=== PATIENT | male | born 1970 | race Caucasian/White ===

== ENCOUNTER 2020-10-05 09:36 | Outpatient (CLI) | payer OTHER ==
[2020-10-05 12:03] LABS: BASOPHILS % (AUTO) 0.8 %; EOSINOPHILS # (AUTO) 0.3 10^3/uL (0.0-0.7); EOSINOPHILS % (AUTO) 5.8 %; HCT - HEMATOCRIT 43.2 % (42.0-52.0); LYMPHOCYTES # (AUTO) 1.2 10^3/uL (1.5-3.5); LYMPHOCYTES % (AUTO) 24.3 %; MEAN CORPUSCULAR HEMOGLOBIN 29.7 pg (27.0-31.0); MEAN CORPUSCULAR HGB CONC 32.4 g/dL (32.0-36.0); MEAN CORPUSCULAR VOLUME 91.7 fL (80.0-94.0); MEAN PLATELET VOLUME 11.2 fL (7.4-11.4); MONOCYTES # (AUTO) 0.6 10^3/uL (0.0-1.0); MONOCYTES % (AUTO) 12.4 %; NEUTROPHILS # (AUTO) 2.8 10^3/uL (1.5-6.6); NEUTROPHILS % (AUTO) 56.3 %; PLT - PLATELET COUNT 259 10^3/uL (130-450); RED BLOOD COUNT 4.71 10^6/uL (4.70-6.10); RED CELL DISTRIBUTION WIDTH 13.2 % (12.0-15.0)
[2020-10-05 12:42] LABS: ALBUMIN 4.1 g/dL (3.2-5.5); ALBUMIN/GLOBULIN RATIO 1.2 (1.0-2.2); ALKALINE PHOSPHATASE 53 IU/L (42-121); ALT ALANINE AMINOTRANSFERASE 32 IU/L (10-60); AST ASPARTATE AMINOTRANSFERASE 25 IU/L (10-42); BILIRUBIN,TOTAL 0.5 mg/dL (0.2-1.0); BUN - BLOOD UREA NITROGEN 16 mg/dL (6-20); CALCIUM 9.1 mg/dL (8.5-10.3); CARBON DIOXIDE - CO2 26 mmol/L (21-32); CHLORIDE 103 mmol/L (101-111); CHOL/HDL RATIO 3.3 (<5.0); CHOLESTEROL 209 mg/dL; CREATININE 0.9 mg/dL (0.6-1.2); GFR - MDRD 90 (>89); GLUCOSE 105 mg/dL (70-100); HDL CHOLESTEROL 64 mg/dL; LDL CHOLESTEROL,CALCULATED 132 mg/dL; LDL/HDL RATIO 2.1 (<3.6); SODIUM 137 mmol/L (135-145); TOTAL PROTEIN 7.6 g/dL (6.7-8.2); TRIGLYCERIDES 66 mg/dL; VLDL CHOLESTEROL 13 mg/dL
[2020-10-05 12:46] LABS: THYROID STIMULATING HORMONE 2.3 uIU/mL (0.34-5.60)
== END 2020-10-05 23:59 | disposition home or self-care (01) ==
LOC: LAB.WCP 09:36
PROVIDERS: ATTEND Nurse Practitioner
DX: Z00.00 Encounter for general adult medical examination without abnormal findings (principal); Z13.220 Encounter for screening for lipoid disorders; Z13.228 Encounter for screening for other metabolic disorders
CPT/HCPCS: 36415; 80053; 80061; 83721; 84443; 85025

== ENCOUNTER 2020-11-24 08:34 | Day surgery (SDC) | payer OTHER ==
[2020-11-24] MEDS ORDERED: LACTATED RINGERS 1,000 ML IV ONE ×2 (08:57→10:24)
[2020-11-24] MEDS ORDERED: fentaNYL 250 MCG/5 ML VIAL ONE (10:03)
[2020-11-24] MEDS ORDERED: MIDAZOLAM 2 MG/2 ML VIAL ONE ×3 (10:03→10:13)
[2020-11-24 10:36] VITALS: BP 119/79
== END 2020-11-24 08:35 | disposition home or self-care (01) ==
LOC: SDS 08:34
PROVIDERS: ATTEND Surgery
DX: Z12.11 Encounter for screening for malignant neoplasm of colon (principal); K57.30 Diverticulosis of large intestine without perforation or abscess without bleeding; K64.8 Other hemorrhoids; F17.200 Nicotine dependence, unspecified, uncomplicated
CPT/HCPCS: 45378; J3010; J7120

== ENCOUNTER 2022-12-31 18:56 | Emergency (ER) | payer MEDICAID, OTHER ==
[2022-12-31] MEDS ORDERED: DEXAMETHASONE 10 MG/ML VIAL IV STA (19:18)
[2022-12-31] MEDS ORDERED: CLINDAMYCIN 900 MG/50 ML 50 ML IV ONE (19:19)
[2022-12-31] MEDS ORDERED: KETOROLAC 30 MG/ML VIAL IVP STA (19:19)
[2022-12-31 19:20] LABS: BASOPHILS # (AUTO) 0.1 10^3/uL (0.0-0.1); BASOPHILS % (AUTO) 0.3 %; EOSINOPHILS # (AUTO) 0.1 10^3/uL (0.0-0.7); EOSINOPHILS % (AUTO) 0.6 %; HCT - HEMATOCRIT 42.5 % (42.0-52.0); LYMPHOCYTES # (AUTO) 1.5 10^3/uL (1.5-3.5); LYMPHOCYTES % (AUTO) 7.9 %; MEAN CORPUSCULAR HEMOGLOBIN 29.2 pg (27.0-31.0); MEAN CORPUSCULAR HGB CONC 32.9 g/dL (32.0-36.0); MEAN CORPUSCULAR VOLUME 88.5 fL (80.0-94.0); MEAN PLATELET VOLUME 10.6 fL (7.4-11.4); MONOCYTES # (AUTO) 1.7 10^3/uL (0.0-1.0); MONOCYTES % (AUTO) 8.7 %; NEUTROPHILS # (AUTO) 15.4 10^3/uL (1.5-6.6); NEUTROPHILS % (AUTO) 81.4 %; PLT - PLATELET COUNT 338 10^3/uL (130-450); RED CELL DISTRIBUTION WIDTH 12.8 % (12.0-15.0); WHITE BLOOD COUNT 18.9 x10^3/uL (4.8-10.8)
--- NOTE | 2022-12-31 19:24 | ED Physician Documentation ---
History of Present Illness - Stated complaint Stated Complaint: SOA - Chief complaint Chief Complaint: Heent - Additonal information Additional information: 52-year-old male presents emergency department for evaluation of sore throat. Reports that 4 days ago he had a sore throat. He had a telehealth computer visit and was prescribed azithromycin though no culture was obtained. Despite this he is continued to have worsening symptoms. On presentation to the emergency department the patient has trismus. He is not tolerating his oral secretions and he has a muffled voice he is however supporting his airway with room air sats of 100%. Nonlabored breathing. He does present febrile and tachycardic. He has a blood pressure of 175/117 on presentation. Review of Systems Constitutional: reports: Fever Throat: reports: Sore throat Cardiac: reports: Reviewed and negative Respiratory: reports: Reviewed and negative GI: reports: Reviewed and negative : reports: Reviewed and negative PD PAST MEDICAL HISTORY - Past Medical History Cardiovascular: None Respiratory: None Endocrine/Autoimmune: None GI: None : None HEENT: None Psych: None Musculoskeletal: None Derm: None - Present Medications Home Medications: Ambulatory Orders Medication Instructions Recorded Confirmed Amox/Clav 875/125 [Augmentin] 1 each PO Q12H #20 tablet 12/31/22 predniSONE [Deltasone] 20 mg PO [id number] #21 tab 12/31/22 - Allergies Allergies/Adverse Reactions: Allergies Allergy/AdvReac Type Severity Reaction Status Date / Time No Known Drug Allergies Allergy Verified 12/31/22 19:04 PD ED PE EXPANDED - General General: Alert, In Pain - HEENT HEENT: Other (Significant left anterior cervical lymphadenopathy and tenderness.). No: Pharynx normal (Beefy red posterior oropharynx. Unable to visualize the posterior airway. The soft palate completely occludes the upper airway, though the uvula may be deviated to the right. Positive trismus. + muffled voice. Not tolerating oral secretions) - Neck Neck: Adenopathy. No: No tenderness - Cardiac Cardiac: Tachy, Radial strong equal, Pedal strong equal, Cap refill < 2 sec. No : Murmur Present - Respiratory Respiratory: Clear to ausultation paddy. No: Distress, Labored - Abdomen Abdomen: Normal Bowel sounds. No: Tender to palpation - Derm Derm: Normal color, Warm and dry - Neuro Neuro: Alert and Oriented X 3, CNII-XII intact - GCS Eye Opening: Spontaneous Motor: Obeys Commands Verbal: Oriented Total: 15 Results - Vitals Vitals: Vital Signs - 24 hr 12/31/22 12/31/22 12/31/22 19:04 19:10 20:06 Temperature 39.3 C H Heart Rate 121 H 110 H 92 Respiratory 16 16 14 Rate Blood Pressure 175/117 H 166/89 H 160/86 H O2 Saturation 99 94 92 12/31/22 12/31/22 12/31/22 21:25 22:39 22:44 Temperature 37.5 C Heart Rate 91 101 H Respiratory 15 19 Rate Blood Pressure 149/77 H 140/91 H O2 Saturation 94 93 Oxygen O2 Source Room air - EKG (time done) 1919 EKG releavant findings:: EKG personally interpreted by author of this note. Relevant findings are: Rate: Rate (enter#) (106) Rhythm: Sinus tachycardia [place]: Normal Intervals: Normal SC QRS: Normal Ischemia: Normal ST segments Compare to prior EKG: Old EKG unavailable Computer interpretation: Agree with computer - Labs Labs: Laboratory Tests 12/31/22 12/31/22 12/31/22 19:10 19:10 19:10 WBC 18.9 H RBC 4.80 Hgb 14.0 Hct 42.5 MCV 88.5 MCH 29.2 MCHC 32.9 RDW 12.8 Plt Count 338 MPV 10.6 Neut # (Auto) 15.4 H Lymph # (Auto) 1.5 [place] # (Auto) 1.7 H Eos # (Auto) 0.1 Baso # (Auto) 0.1 Absolute Nucleated RBC 0.00 Band Neuts % (Manual) Not Reportable Abnorm Lymph % (Manual) Not Reportable Nucleated RBC % 0.0 Neutrophils # (Manual) Not Reportable Lymphocytes # (Manual) Not Reportable Monocytes # (Manual) Not Reportable Eosinophils # (Manual) Not Reportable Basophils # (Manual) Not Reportable Differential Comment MANUAL=AUTO DIFF Manual Slide Review Indicated Platelet Estimate NORMAL (130-450,000) Platelet Morphology NORMAL APPEARANCE RBC Morph Micro Appear NORMAL APPEARANCE Sodium 136 Potassium 3.2 L Chloride 98 L Carbon Dioxide 26 Anion Gap 12.0 BUN 12 Creatinine 1.0 Estimated GFR (MDRD) 78 L Glucose 126 H Lactic Acid Calcium 8.8 Total Bilirubin 0.7 AST 20 ALT 29 Alkaline Phosphatase 79 Total Protein 8.9 H Albumin 4.0 Globulin 4.9 H Albumin/Globulin Ratio 0.8 L Group A Strep Rapid Negative 12/31/22 19:29 WBC RBC Hgb Hct MCV MCH MCHC RDW Plt Count MPV Neut # (Auto) Lymph # (Auto) [place] # (Auto) Eos # (Auto) Baso # (Auto) Absolute Nucleated RBC Band Neuts % (Manual) Abnorm Lymph % (Manual) Nucleated RBC % Neutrophils # (Manual) Lymphocytes # (Manual) Monocytes # (Manual) Eosinophils # (Manual) Basophils # (Manual) Differential Comment Manual Slide Review Platelet Estimate Platelet Morphology RBC Morph Micro Appear Sodium Potassium Chloride Carbon Dioxide Anion Gap BUN Creatinine Estimated GFR (MDRD) Glucose Lactic Acid 1.4 Calcium Total Bilirubin AST ALT Alkaline Phosphatase Total Protein Albumin Globulin Albumin/Globulin Ratio Group A Strep Rapid - Rads (name of study) cxr Relevant Findings:: Final report received (No acute cardiopulmonary radiographic abnormality) CT soft tissue neck w Relevant Findings:: Final report received PD Medical Decision Making - ED course Complexity details: reviewed results, re-evaluated patient, considered differential, d/w patient ED course: [id number] male comes to the emergency department for evaluation of worsening sore throat. Orts that on Monday of this week he had a sore throat and had a Zoom encounter with the provider who prescribed azithromycin for suspected strep. No laboratory testing was completed. Despite the use of the azithromycin he has had progressive posterior oropharynx erythema and swelling now presenting with a muffled voice and difficulty tolerating oral secretions as well as trismus. On presentation to the emergency department he was febrile at 39.3 and tachycardic. He was normotensive. Nursing staff alerted me to sepsis protocol. Though he did have a muffled voice and difficulty swallowing, he was without any respiratory distress. His ENT exam was difficult as there was trismus but posterior oropharynx was quite crowded with left soft palate swelling and erythema. The patient was immediately administered 20 mg of Decadron for suspicion of a peritonsillar abscess as well as 900 mg of clindamycin and Toradol. CBC does show a significant leukocytosis with a white count of 19,000. No bandemia. His electrolytes show also a mild dehydration with an elevated BUN and creatinine. He was administered a liter of IV fluids. His lactate was not elevated. Chest x-ray showed no acute cardiopulmonary pathology suggesting pneumonia, pleural effusion or pneumothorax. Rapid strep is negative. Following the IVF, his HR and fever have improved. He did receive toradol IV and fentanyl IV with marked improvement in pain A CT of the soft palate and soft tissues of the neck which per my interpretation shows a large left peritonsillar swelling, possible early abscess. Imaging has been pushed to [facility] and I will request ENT consultation. I have reevaluated the patient. He is phonating much better. He still has trismus but is now tolerating his oral secretions. I am awaiting ENT return call from [facility] 2200: pt is signed out to my nighttime colleague Dr. Elizalde pending [facility] ENT. assuming that with pt's clinical improvement, he is stable to dc home with steroids and a change in abx. But givne concern for early phelgmom or abscess formation, will defer to ENT preference for conservative management vs transfer. Pt is supporting his airway adequately Departure - Departure Disposition: Home, Self Care Clinical Impression: Abscess, peritonsillar Condition: Stable Instructions: ED Peritonsillar Abscess Prescriptions: Amox/Clav 875/125 [Augmentin] 1 each PO Q12H #20 tablet predniSONE [Deltasone] 20 mg PO [id number] #21 tab Comments: You have an infection in your left tonsil which has been worsening. On evaluation with a CAT scan that there is a significant amount of inflammation but no discrete pocket of infection to drain the yet.Your symptoms are getting better on the proper antibiotic and steroids. We did consult with the ENT at [facility] who feels that you are okay to go home tonight and should continue on antibiotics and steroids. I have sent prescriptions to [facility] in [place]. Please continue with acetaminophen or ibuprofen as needed for fevers or pain. However if it anytime you notice any worsening symptoms in any way please return immediately to the emergency department or call 911. Discharge Date/Time: 12/31/22 22:45
[2022-12-31 19:31] LABS: ALBUMIN/GLOBULIN RATIO 0.8 (1.0-2.2); BILIRUBIN,TOTAL 0.7 mg/dL (0.2-1.0); CALCIUM 8.8 mg/dL (8.5-10.3); POTASSIUM 3.2 mmol/L (3.5-5.0); TOTAL PROTEIN 8.9 g/dL (6.7-8.2)
[2022-12-31 19:32] LABS: SLIDE REVIEW? Indicated
[2022-12-31 19:38] LABS: RAPID STREP SCREEN Negative (Negative)
[2022-12-31] MEDS ORDERED: iohexoL-300 100 ML VIAL ONE (19:43)
[2022-12-31 19:44] LABS: DIFFERENTIAL COMMENT MANUAL=AUTO DIFF; PLATELET ESTIMATE, MANUAL NORMAL (130-450,000) (NORMAL); PLATELET MORPHOLOGY NORMAL APPEARANCE (NORMAL); RBC MORPHOLOGY (MULTIPLE) NORMAL APPEARANCE (NORMAL)
--- NOTE | 2022-12-31 19:48 | XRAY Report ---
PROCEDURE: Chest 1 View X-Ray INDICATIONS: Sepsis TECHNIQUE: One view of the chest was acquired. COMPARISON: None. FINDINGS: Surgical changes and devices: None. Lungs and pleura: No pleural effusions or pneumothorax. Lungs are clear. Mediastinum: Mediastinal contours appear normal. Heart size is normal. Bones and chest wall: No suspicious bony lesions. Overlying soft tissues appear unremarkable. IMPRESSION: No acute radiographic abnormality. Reviewed by: Dennys Maloney MD on 12/31/2022 7:47 PM PDT Approved by: Dennys Maloney MD on 12/31/2022 7:47 PM PDT Station ID: [id number]
[2022-12-31] MEDS ORDERED: SODIUM CHLORIDE 0.9% 1,000 ML IV STA (19:49)
[2022-12-31] MEDS ORDERED: fentaNYL 100 MCG/2 ML VIAL IVP STA (19:50)
[2022-12-31] MEDS ORDERED: iohexoL-300 100 ML VIAL IVP ONE (20:43)
--- NOTE | 2022-12-31 21:22 | CT Report ---
PROCEDURE: SOFT TISSUE NECK W INDICATIONS: Questionable left peritonsillar abscess CONTRAST: IV 100 ML OMNI 300 TECHNIQUE: After the administration of intravenous contrast, 3.0 mm axial sections acquired from the sella to th e aortic arch. Additional oblique axial 3.0 mm sections acquired through the pharynx. 3 mm thick co damien reformats were generated. For radiation dose reduction, the following was used: automated exp osure control, adjustment of mA and/or kV according to patient size. COMPARISON: None. FINDINGS: Image quality: Excellent. Lymph nodes: Bilateral several enlarged lymph nodes seen within the neck at the axial level of the to nsillar pillars. No necrotic lymph nodes are seen. Vessels: Visualized vasculature appears patent. Neck spaces: The oropharynx, nasopharynx, and pharynx demonstrate no mucosal lesions. The vocal cor ds, false vocal cords, pyriform sinuses, epiglottis, vallecula, and tongue base all appear normal. E xtramucosal spaces appear unremarkable on the right but asymmetrically enlarged on the left at the to nsillar pillar where significant mass effect is present due to enlargement of this area measuring up to 3.9 cm in transverse and AP dimension over a craniocaudad length of approximately 5.5 cm tapering above and below. Centrally positioned within this area of enlargement is vague low attenuation, in a pattern suggestive of phlegmon progressing to early abscess formation.. Glands: The parotid and submandibular glands appear normal. The thyroid is normal in size and there are no incidental findings. Miscellaneous: Visualized brain and orbits appear normal. Lung apices appear clear. Superficial so ft tissues appear normal. Bones: No suspicious bony lesions. Visualized sinuses and mastoids appear unremarkable. IMPRESSION: The left tonsillar pillar is prominently enlarged by what is presumably an inflammatory process in th is clinical circumstance. As discussed above there are several mildly to moderately enlarged lymph no christian at the axial level of the tonsillar pillars bilaterally, considered most likely reactive. The low attenuation vaguely present within the area of tonsillar pillar enlargement on the left is highly rendon spicious for phlegmon progressing to early abscess formation. CT scanning may underestimate the degre e of abscess formation in the setting of acute soft tissue infection in the head and neck area. Emerg ent ENT consultation is anticipated. CLINICAL RECOMMENDATION STATEMENTS: In patients <35 years with an ITN detected on CT, MRI, or extrathyroidal ultrasound, the Committee re commends further evaluation with dedicated thyroid ultrasound if the nodule is "e1 cm and has no susp icious imaging features, and if the patient has normal life expectancy. In patients "e35 years with an ITN detected on CT, MRI, or extrathyroidal ultrasound, the Committee r ecommends further evaluation with dedicated thyroid ultrasound if the nodule is "e1.5 cm and has no s uspicious imaging features, and if the patient has normal life expectancy. (ACR, 2014) Reviewed by: Slava Marcus MD on 12/31/2022 9:20 PM PDT Approved by: Slava Marcus MD on 12/31/2022 9:20 PM PDT Station ID: [id number]
--- NOTE | 2022-12-31 22:38 | ED Physician Documentation ---
ED Addendum - Addendum Addendum: Patient received in signout from LUANNE Jane pending ENT consultation at [facility]. Patient presented with left tonsillar swelling, fever.Noted to have phlegmon versus early abscess on CT scan. Patient had already received Decadron as well as IV clindamycin with significant improvement in his symptoms. Patient states that he is now able to talk and swallow which he was having difficulty doing when he first arrived. 12/31/22 22:21 D/W Dr. Holt (ENT AT [facility]). He has reviewed the images and we have also discussed the patient's presentation and exam. He feels patient can be discharged home to continue on Augmentin and would also recommend a Medrol pack.He would expect that the patient's symptoms should continue to improve while on the steroids as well as the proper antibiotic. He Does not feel patient needs admission at this time or transfer for any procedure. I went back to review these recommendations with the patient and his mother who are at the bedside. Patient states he is feeling much better and is comfortable with the plan for discharge with continued treatment with steroids and antibiotics. He is advised on strict return precautions for any worsening symptoms. Departure - Departure Disposition: 01 Home, Self Care Clinical Impression: Abscess, peritonsillar Condition: Stable Instructions: ED Peritonsillar Abscess Prescriptions: Amox/Clav 875/125 [Augmentin] 1 each PO Q12H #20 tablet predniSONE [Deltasone] 20 mg PO [id number] #21 tab Comments: You have an infection in your left tonsil which has been worsening. On evaluation with a CAT scan that there is a significant amount of inflammation but no discrete pocket of infection to drain the yet.Your symptoms are getting better on the proper antibiotic and steroids. We did consult with the ENT at [facility] who feels that you are okay to go home tonight and should continue on antibiotics and steroids. I have sent prescriptions to [email or web address] in [place]. Please continue with acetaminophen or ibuprofen as needed for fevers or pain. However if it anytime you notice any worsening symptoms in any way please return immediately to the emergency department or call 911. Discharge Date/Time: 12/31/22 22:45
[2022-12-31 22:40] VITALS: BP 140/91
== END 2022-12-31 22:45 | disposition home or self-care (01) ==
LOC: ED 18:56
DX: J36 Peritonsillar abscess (principal); E86.0 Dehydration
CPT/HCPCS: 36415; 70491; 71045; 80053; 83605; 85025; 87040; 87070; 87430; 93005; 96365; 96375; 99284; 99285; Q9967

== ENCOUNTER 2023-02-21 15:13 | Outpatient (CLI) | payer MEDICAID ==
--- NOTE | 2023-02-21 16:47 | XRAY Report ---
PROCEDURE: Knee 4 View RT INDICATIONS: RIGHT KNEE PAIN TECHNIQUE: 4 views of the right knee(s) were acquired. COMPARISON: None. FINDINGS: Bones: No fractures or dislocations. No suspicious bony lesions. Mild to moderate tricompartment osteoarthritis is seen most notably in medial femoral tibial compartment with joint space narrowing, subchondral sclerosis and small marginal osteophyte formation. Soft tissues: There is a small knee joint effusion. 1 cm calcification is noted in anterior aspect o f medial femoral tibial compartment concerning for loose body. IMPRESSION: No acute bony abnormality. Mild to moderate tricompartmental osteoarthritis most notably in medial femoral tibial compartment. S mall joint effusion with possible loose body as above. Reviewed by: Diaz Bowman MD on 02/21/2023 4:46 PM PDT Approved by: Diaz Bowman MD on 02/21/2023 4:46 PM PDT Station ID: [id number]
== END 2023-02-21 15:14 | disposition home or self-care (01) ==
LOC: DI.WOS 15:13
PROVIDERS: ATTEND Physician Assistant Surgical
DX: M17.11 Unilateral primary osteoarthritis, right knee (principal); M25.461 Effusion, right knee

== ENCOUNTER 2023-03-02 17:18 | Outpatient (CLI) | payer MEDICAID ==
--- NOTE | 2023-03-03 15:24 | MRI Report ---
PROCEDURE: KNEE WO - RT INDICATIONS: INJURY OF RIGHT KNEE TECHNIQUE: Noncontrast sagittal PD fast spin echo and T2 fast spin echo with fat saturation, sagittal 3-D gradie nt sequence with fat saturation; coronal T1 spin echo and PD fast spin echo with fat saturation, and axial PD fast spin echo with fat saturation through the knee. COMPARISON: None. FINDINGS: Image quality: Excellent. Menisci: Oblique tear involving body and posterior horn of medial meniscus is seen extending to infer ior articulating surface. Peripheral displacement of medial meniscus bowing medial collateral ligamen t is also noted. No gross focal lateral meniscal tear is seen. The meniscal root ligaments appear int act. Cruciate ligaments: The anterior cruciate ligament is thickened with intrasubstance T2 hyperintense signal. The posterior cruciate ligament is intact. Medial structures: The medial collateral ligament appears thickened with surrounding soft tissue taylor ma. The posterior oblique ligament, semimembranosus tendon insertions, and oblique popliteal ligamen t, and meniscocapsular junction appear intact. Visualized portions of the pes anserinus tendons appe ar normal. No abnormal bursal fluid. Lateral structures: The lateral collateral ligament, long and short heads of the biceps femoris tend on appear intact. The popliteus tendon appears normal; the popliteofibular ligament appears intact. There are Iliotibial band appears normal. Anterior structures: The quadriceps and patellar tendons appear intact. Patellar alignment is jaclyn l. No femoral trochlear dysplasia or ventral trochlear prominence. No edema in the infrapatellar fa t pad. Bones and cartilage: No bone marrow contusions or fractures. Mild to moderate medial femoral-tibial compartment osteoarthritis and chondromalacia is seen. Joint space: There is small to moderate knee joint fluid. There is suggestion of loose body within a nterior aspect of medial femoral tibial compartment adjacent to anterior to distal ACL insertion and measures 1.1 cm in size. No Villalpando's cyst. Normal appearing synovial plicae are incidentally noted. IMPRESSION: 1. Oblique tear involving body and posterior horn of medial meniscus extending to inferior articulati ng surface. No focal lateral meniscal tear. 2. Degenerative changes and low-grade intrasubstance partial thickness tear involving anterior crucia te ligament. No full-thickness ACL rupture. The PCL is intact. 3. Low-grade MCL sprain. 4. Mild to moderate medial femoral-tibial compartment osteoarthritis and chondromalacia. Small to mod erate joint effusion with suggestion of loose body in anterior aspect of medial femoral tibial compar tment as described above. No fracture or dislocation. Reviewed by: Diaz Bowman MD on 03/03/2023 2:23 PM [email or web address] Approved by: Diaz Bowman MD on 03/03/2023 2:23 PM [email or web address] Station ID: [id number]
== END 2023-03-02 17:19 | disposition home or self-care (01) ==
LOC: DI 17:18
PROVIDERS: ATTEND Physician Assistant Surgical
DX: S83.241A Other tear of medial meniscus, current injury, right knee, initial encounter (principal); M17.11 Unilateral primary osteoarthritis, right knee; S83.511A Sprain of anterior cruciate ligament of right knee, initial encounter; S83.411A Sprain of medial collateral ligament of right knee, initial encounter; M94.261 Chondromalacia, right knee; M25.461 Effusion, right knee

== ENCOUNTER 2024-04-06 15:08 | Emergency (ER) | payer MEDICAID ==
[2024-04-06 15:29] LABS: BASOPHILS % (AUTO) 0.2 %; EOSINOPHILS % (AUTO) 0.2 %; HCT - HEMATOCRIT 43.3 % (42.0-52.0); HGB - HEMOGLOBIN 14.3 g/dL (14.0-18.0); LYMPHOCYTES # (AUTO) 0.4 10^3/uL (1.5-3.5); LYMPHOCYTES % (AUTO) 2.6 %; MEAN CORPUSCULAR HEMOGLOBIN 29.7 pg (27.0-31.0); MEAN CORPUSCULAR VOLUME 89.8 fL (80.0-94.0); MEAN PLATELET VOLUME 10.4 fL (7.4-11.4); MONOCYTES # (AUTO) 0.2 10^3/uL (0.0-1.0); MONOCYTES % (AUTO) 1.5 %; NEUTROPHILS # (AUTO) 14.1 10^3/uL (1.5-6.6); NEUTROPHILS % (AUTO) 95.1 %; PLT - PLATELET COUNT 233 10^3/uL (130-450); RED BLOOD COUNT 4.82 10^6/uL (4.70-6.10); RED CELL DISTRIBUTION WIDTH 13.2 % (12.0-15.0); WHITE BLOOD COUNT 14.8 x10^3/uL (4.8-10.8)
--- NOTE | 2024-04-06 15:35 | ED Physician Documentation ---
PD HPI ABD PAIN - Stated complaint Stated Complaint: ABD PX,CHILLS,SHAKES - Chief complaint Chief Complaint: Abd Pain - History obtained from History obtained from: Patient - History of Present Illness Timing - onset: How many days ago (2 1/2) Timing - duration: Days (2 1/2) Timing - details: Gradual onset (2), Still present (became severe pain level in same area today.) Quality: Cramping, Aching, Pain Location: Suprapubic, LLQ Radiation: Lower back Improved by: Laying still. No: Meds (ibuprofen without relief.) Worsened by: Moving Associated symptoms: Fever, Nausea, Vomiting, Constipation. No: Diarrhea, Melena, Dysuria Similar symptoms before: Has not had sx before PD PAST MEDICAL HISTORY - Past Medical History Cardiovascular: None Respiratory: None Endocrine/Autoimmune: None GI: None : None HEENT: None Psych: None Musculoskeletal: None Derm: None - Past Surgical History Past Surgical History: Yes General: Appendectomy - Present Medications Home Medications: Ambulatory Orders Medication Instructions Recorded Confirmed Amox/Clav 875/125 [Augmentin] 1 each PO Q12H #20 tablet 12/31/22 predniSONE [Deltasone] 20 mg PO [id number] #21 tab 12/31/22 Docusate Sodium 100Mg Capsule 100 mg PO DAILY #20 cap 04/06/24 [Colace 100Mg Capsule] Meloxicam [Mobic] 7.5 mg PO BID 10 Days #20 tablet 04/06/24 Ondansetron Odt [Zofran] 4 mg TL Q6H PRN #10 tablet 04/06/24 Oxycodone HCl/Acetaminophen 1 each PO Q6H PRN #18 tablet 04/06/24 [Percocet 5-325 mg Tablet] cephALEXin [Keflex] 500 mg PO TID #20 cap 04/06/24 metroNIDAZOLE [Flagyl] 250 mg PO TID #20 tablet 04/06/24 - Allergies Allergies/Adverse Reactions: Allergies Allergy/AdvReac Type Severity Reaction Status Date / Time No Known Drug Allergies Allergy Verified 04/06/24 15:19 - Social History Does the pt smoke?: Yes Smoking Status: Current some day smoker Does the pt drink ETOH?: Yes Does the pt have substance abuse?: No PD ED PE NORMAL - Vitals Vital signs reviewed: Yes - General General: Alert and oriented X 3, Well developed/nourished, Other (appears in considerable pain lower abdomen. guarding movement and palpation to the area. ) - Neck Neck: Supple, no meningeal sign, No adenopathy - Cardiac Cardiac: RRR, No murmur - Respiratory Respiratory: Clear bilaterally - Abdomen Abdomen: Normal bowel sounds, Soft, Non distended, Other (markedly tender to palpation LLQ and mid abd. Some tender right lower. Bladder feels mildly full. No CVA tenderness. ) - Back Back: No CVA TTP - Derm Derm: Normal color, Warm and dry Results - Vitals Vitals: Vital Signs - 24 hr 04/06/24 04/06/24 04/06/24 15:15 18:07 19:12 Temperature 36.7 C Heart Rate 114 H 101 H 90 Respiratory 18 16 16 Rate Blood Pressure 139/76 H 130/73 114/68 O2 Saturation 100 95 95 04/06/24 19:16 Temperature Heart Rate 90 Respiratory 18 Rate Blood Pressure 114/68 O2 Saturation 97 Oxygen O2 Source Room air - Labs Labs: Laboratory Tests 04/06/24 04/06/24 04/06/24 15:23 15:23 17:47 WBC 14.8 H RBC 4.82 Hgb 14.3 Hct 43.3 MCV 89.8 MCH 29.7 MCHC 33.0 RDW 13.2 Plt Count 233 MPV 10.4 Neut # (Auto) 14.1 H Lymph # (Auto) 0.4 L [place] # (Auto) 0.2 Eos # (Auto) 0.0 Baso # (Auto) 0.0 Absolute Nucleated RBC 0.00 Nucleated RBC % 0.0 Sodium 136 Potassium 3.2 L Chloride 101 Carbon Dioxide 26 Anion Gap 9.0 BUN 11 Creatinine 1.0 Estimated GFR (MDRD) 78 L Glucose 122 H Calcium 9.3 Total Bilirubin 1.2 H AST 120 H ALT 88 H Alkaline Phosphatase 162 H Total Protein 7.4 Albumin 4.4 Globulin 3.0 Albumin/Globulin Ratio 1.5 Lipase 11 Urine Color DARK YELLOW Urine Clarity CLEAR Urine pH 6.5 Ur Specific [place] <=1.005 Urine Protein TRACE Urine Glucose (UA) NEGATIVE Urine Ketones NEGATIVE Urine Occult Blood NEGATIVE Urine Nitrite NEGATIVE Urine Bilirubin SMALL H Urine Urobilinogen 0.2 (NORMAL) Ur Leukocyte Esterase NEGATIVE Ur Microscopic Review NOT INDICATED Urine Culture Comments NOT INDICATED - Rads (name of study) abd/pelvic CT Relevant Findings:: Prelim report reviewed (uncomplicated diverticulitis descending/sigmoid colon area. ), See rad report PD Medical Decision Making - ED course Complexity details: reviewed results (I discussed results and expected course of treatment/improvement with this. 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 He is comfortable with the level and declines further meds after a repeat dose. ), considered differential, d/w patient Reviewed Lab Results: WBC elevated. Chemistry panel showing mild eleveated LFTs. Consider related to voiting and hydration. No obvious liver nor CBD/GB process. Departure - Departure Disposition: 01 Home, Self Care Clinical Impression: Lower abdominal pain, Acute diverticulitis Condition: Stable Record reviewed to determine appropriate education?: Yes Instructions: ED Diverticulitis Prescriptions: Docusate Sodium 100Mg Capsule [Colace 100Mg Capsule] 100 mg PO DAILY #20 cap metroNIDAZOLE [Flagyl] 250 mg PO TID #20 tablet cephALEXin [Keflex] 500 mg PO TID #20 cap Meloxicam [Mobic] 7.5 mg PO BID 10 Days #20 tablet Oxycodone HCl/Acetaminophen [Percocet 5-325 mg Tablet] 1 each PO Q6H PRN #18 tablet PRN Reason: pain Ondansetron Odt [Zofran] 4 mg TL Q6H PRN #10 tablet PRN Reason: Nausea / Vomiting Comments: Your CT scan shows diverticulitis. No evidence for perforation or abscess in the area. Obviously it is causing good response in your system with the fevers and elevated white count and general pain/tenderness. It is good that you are feeling better at this point and I would anticipate improvement now on the antibiotics with anti-inflammatory and pain medicine. Small frequent fluids and small meals through the evening and tomorrow. Rest for a day or 2 until you are feeling improved. I sent prescriptions for some nausea medicine called Zofran and 2 antibiotics called metronidazole and cephalexin as well as pain medicine oxycodone to the [facility] in [place]. They should be open tomorrow. We are sending you home tonight with antibiotics and nausea medicine and pain medicine. It would make sense to a stool softener daily for the next several days to week to help relieve any firm stool so there is less pressure on the diverticulitis and also to preempt any constipation from the pain meds. Stay well-hydrated. Recheck if not improving well over the next 2 to 3 days and resolved by 3 to 5 days. I am prescribing a short course of narcotic pain medication for you. These are potentially dangerous and addictive medications that should be used carefully. These medications may constipate you. Take an [id number] stool softener such as docusate twice daily with plenty of water while taking these medications. If you go 24 hours without a bowel movement, take [id number] MiraLAX, per package instructions. Do not drink or drive while taking these medications. If you received narcotic or sedating medications while in the emergency department do not drive for 24 hours. Store this medication in a safe, secure place and out of reach of children. It is a violation of federal law to give or sell this medication to another person or to use in a manner other than prescribed. The ED will not refill narcotic prescriptions, including prescriptions lost or stolen. You can dispose of unwanted medications at the [facility]'s office or at several pharmacies such as [facility]. Forms: PCP List Discharge Date/Time: 04/06/24 19:16
[2024-04-06 15:55] LABS: ALBUMIN 4.4 g/dL (3.2-5.5); ALBUMIN/GLOBULIN RATIO 1.5 (1.0-2.2); BILIRUBIN,TOTAL 1.2 mg/dL (0.2-1.0); CALCIUM 9.3 mg/dL (8.5-10.3); POTASSIUM 3.2 mmol/L (3.5-4.5); TOTAL PROTEIN 7.4 g/dL (6.4-8.9)
[2024-04-06] MEDS ORDERED: iohexoL-300 100 ML VIAL ONE (16:38)
[2024-04-06] MEDS: HYDROmorphone 1 MG/ML CARPUJECT IVP STA ×2 (16:48→17:53)
[2024-04-06] MEDS: KETOROLAC 30 MG/ML VIAL IVP STA (16:48)
[2024-04-06] MEDS: SODIUM CHLORIDE 0.9% 1,000 ML IV STA (17:00)
--- NOTE | 2024-04-06 17:38 | CT Report ---
PROCEDURE: Abdomen/Pelvis W INDICATIONS: lower abd pain, severe CONTRAST: 100ml omni 300 TECHNIQUE: After the administration of intravenous contrast, a CT scan of the abdomen and pelvis was performed. Images were recorded and evaluated at appropriate window settings. Reformats: coronal and sagittal. F or radiation dose reduction, the following was used: automated exposure control, adjustment of mA and /or kV according to patient size. COMPARISON: None. FINDINGS: Image quality: Diagnostic. Lower chest: Unremarkable. Liver: No solid mass. Gallbladder: No radiopaque stones or wall thickening. Biliary tree: No intrahepatic or extrahepatic dilation, accounting for age. Spleen: No splenomegaly. Pancreas: No pancreatic ductal dilation. Adrenals: No adrenal nodule. Kidneys and ureters: No hydronephrosis. No renal cystic lesion which requires follow up. No solid mas s. Stomach, bowel and peritoneum: No gastric or small bowel dilation. No abnormal wall thickening. No pa thologic free fluid. Acute diverticulitis of the distal descending/proximal sigmoid colon with surrou nding mesenteric stranding/inflammation. No adjacent fluid collection or free air. Lymph nodes: No central or retroperitoneal adenopathy. Vessels: No infrarenal aortic aneurysm. Patent portal vein. PELVIS Reproductive organs: Unremarkable. Bladder: No abnormal wall thickening, accounting for underdistention. Pelvic lymph nodes: No pelvic adenopathy by size criteria. Bones: No aggressive osseous abnormality. Other: No significant ventral or inguinal hernia. IMPRESSION: Acute uncomplicated diverticulitis of the distal descending/proximal sigmoid colon. Reviewed by: Monique Zaidi MD, PhD on 04/06/2024 4:37 PM JOSE A Approved by: Monique Zaidi MD, PhD on 04/06/2024 4:37 PM AKDT Station ID: [id number]
[2024-04-06 17:59] LABS: BILIRUBIN,URINE SMALL (NEGATIVE); GLUCOSE, URINE (UA) NEGATIVE (NEGATIVE); KETONES,URINE (UA) NEGATIVE (NEGATIVE); LEUKOCYTE ESTERASE, URINE NEGATIVE (NEGATIVE); NITRITE,URINE NEGATIVE (NEGATIVE); OCCULT BLOOD,URINE NEGATIVE (NEGATIVE); PH,URINE 6.5 PH (5.0-7.5); PROTEIN,URINE TRACE mg/dL (NEGATIVE); UROBILINOGEN,URINE 0.2 (NORMAL) E.U./dL (NORMAL)
[2024-04-06] MEDS: iohexoL-300 100 ML VIAL IVP ONE (18:08)
[2024-04-06 18:10] LABS: CLARITY,URINE CLEAR (CLEAR)
[2024-04-06] MEDS: ONDANSETRON ODT 4 MG Prepack 2 TL PRN (18:43)
[2024-04-06] MEDS: metroNIDAZOLE 250 MG TABLET PO STA (18:43)
[2024-04-06] MEDS: CEPHALEXIN 250 MG Prepack 8 CAP BOTTLE PO STA (18:43)
[2024-04-06] MEDS: oxyCODONE/ACET 5/325 Prepack 4 PO STA (18:44)
[2024-04-06] MEDS: cefTRIAXone 1 GM VIAL IVP STA (18:44)
[2024-04-06] MEDS: DOCUSATE SODIUM 100 MG CAPSULE PO STA (18:55)
[2024-04-06 19:17] VITALS: BP 114/68; O2SAT 97
== END 2024-04-06 19:16 | disposition home or self-care (01) ==
LOC: ED 15:08
DX: K57.32 Diverticulitis of large intestine without perforation or abscess without bleeding (principal); D72.829 Elevated white blood cell count, unspecified; R79.89 Other specified abnormal findings of blood chemistry; F17.200 Nicotine dependence, unspecified, uncomplicated
CPT/HCPCS: 36415; 51798; 74177; 80053; 81003; 83690; 85025; 96361; 96374; 96375; 96376; 99284; A9270; J1170; Q9967; 81001; 87086